=== PATIENT | female | born 1960 | race African-American/Black ===

== ENCOUNTER 2022-06-04 20:28 | Emergency (ER) | payer OTHER ==
[~2022-06-04] VITALS: Ht 160 cm; Wt 81.6 kg
--- NOTE | 2022-06-04 21:10 | NUR ---
CALLED TO TRIAGE NO ANSWER.
[2022-06-04 23:24] VITALS: BP 117/79
--- NOTE | 2022-06-04 23:24 | NUR ---
BIBS HOMELESS VOLUNTARY ADMISSION TO PSYCH FOR SUICIDAL IDEATION PLANS TO RUN INTO TRAFFIC. PT A/OX3. AMBULATORY WITH STEADY GAIT. PT IN GOWN, BELONGINGS COLLECTED AND PLACED IN LOCKER, WANDED BY SECURITY. SAFETY MEASURES IN PLACE. SITTER AT PT'S BEDSIDE
--- NOTE | 2022-06-04 23:47 | NUR ---
COVID ANTIGEN AND URINE COLLECTED AND SENT TO LAB
[2022-06-05 00:06] LABS: BASOPHILS % (AUTO) 0.9 % (0.0-2.0); HEMATOCRIT 37 % (33-45); HEMOGLOBIN 12.2 g/dL (11.5-14.8); LYMPHOCYTES # (AUTO) 1.9 K/uL (0.8-4.8); LYMPHOCYTES % (AUTO) 39.6 % (20.0-44.0); MEAN CORPUSCULAR HGB CONC 33 g/dl (31.0-36.0); MEAN CORPUSCULAR VOLUME 88 fL (82-100); MONOCYTES # (AUTO) 0.4 K/uL (0.1-1.30); MONOCYTES % (AUTO) 8.1 % (2.0-12.0); NEUTROPHILS # (AUTO) 2.3 K/uL (1.8-8.9); NEUTROPHILS % (AUTO) 48.4 % (43.0-81.0); PLATELET COUNT (AUTO) 287 K/uL (150-450); WHITE BLOOD COUNT (AUTO) 4.7 K/uL (4.3-11.0)
[2022-06-05 00:09] LABS: BILIRUBIN,URINE 1+ (NEGATIVE); COLOR,URINE YELLOW (YELLOW); LEUKOCYTE ESTERASE ,URINE NEGATIVE (NEGATIVE); NITRITE, URINE NEGATIVE (NEGATIVE); PH,URINE 5.5 (5.0-8.0); PROTEIN,URINE 1+ mg/dl (NEGATIVE); UGLUCOSE NEGATIVE (NEGATIVE); UROBILINOGEN,URINE 0.2 EU/dL (0.2)
[2022-06-05 00:16] LABS: CALCIUM, SERUM 9.2 mg/dL (8.5-10.1); CARBON DIOXIDE 27 mmol/L (21-32); CHLORIDE 105 mmol/L (98-107); CREATININE 1.1 mg/dL (0.6-1.3); GLUCOSE 120 mg/dL (74-106); POTASSIUM 3.5 mmol/L (3.5-5.1); SODIUM SERUM 139 mmol/L (136-145); UREA NITROGEN, BLOOD 13 mg/dL (7-18)
[2022-06-05 00:24] LABS: ALANINE AMINOTRANSFERASE 39 U/L (12-78); ALCOHOL, BLOOD < 3 mg/dL (0-0); ALKALINE PHOSPHATASE 101 U/L (46-116); ASPARTATE AMINOTRANSFERASE 31 U/L (15-37); BILIRUBIN,DIRECT 0.1 mg/dL (0.0-0.2); BILIRUBIN,TOTAL 0.2 mg/dL (0.2-1.0); TOTAL PROTEIN, SERUM 7.9 g/dL (6.4-8.2)
[2022-06-05 00:25] LABS: ACETAMINOPHEN 0 ug/ml (10-30)
--- NOTE | 2022-06-05 03:28 | NUR ---
PT VERBALIZED THAT HE IS FEELING BETTER AND NO LONGER SUICIDAL. MD MADE AWARE. PT IS MEDICALLY AND PSYCHIATRICALLY CLEARED FOR DISCHARGED. PT IS IN STABLE CONDITION. AMBULATORY ON STEADY GAIT. BELONGINGS RETURN TO PT
--- NOTE | 2022-06-05 10:50 | NUR ---
SPOKE TO INTAKE REGARDING FAXED CLINICALS. IT IS UNDER REVIEW.
--- NOTE | 2022-06-05 11:19 | NUR ---
ACCEPTED AT [facility] UNDER DR. PERSAUD [phone] TRANSPORT ETA 1200.
--- NOTE | 2022-06-05 12:01 | NUR ---
ATTEMPTED TO GIVE REPORT, NO ANSWER
--- NOTE | 2022-06-05 12:49 | NUR ---
TRANSPORT PICKED UP THE PT.
== END 2022-06-05 13:10 ==
LOC: ER 20:40
DX: R45.851 Suicidal ideations (principal); F20.9 Schizophrenia, unspecified; F17.200 Nicotine dependence, unspecified, uncomplicated; R82.4 Acetonuria; Z20.822 Contact with and (suspected) exposure to COVID-19
CPT/HCPCS: 36415; 80048-TC; 80076-TC; 85025-TC; C9803; G0480